=== PATIENT | female | born 1955 | race Two or more races ===

== ENCOUNTER 2025-01-28 10:09 | Emergency (ER) | payer OTHER ==
[2025-01-28 10:41] VITALS: BMI 29.8
[2025-01-28] MEDS ORDERED: morphine SULFATE 4 MG/ML VIAL ONE (11:34)
[2025-01-28 11:39] LABS: ABSOLUTE IMMATURE GRANULOCYTES 0.01 x10^3/uL (0.0-0.031); BASOPHILS # 0.03 x10^3/uL (0.01-0.08); EOSINOPHILS # 0.04 x10^3/uL (0.04-0.36); HEMATOCRIT 37.5 % (34.1-44.9); MCHC 34.7 g/dl (32.2-35.5); MEAN CELL VOLUME 93.5 fl (79.4-94.8); MEAN PLT VOLUME 9.9 fl (9.4-12.3); MONOCYTE # 0.51 x10^3/uL (0.24-0.86); MONOCYTE % 12.8 % (4.7-12.5); PLATELET COUNT 219 x10^3/uL (182-369)
[2025-01-28 11:47] LABS: INR 1.06 (0.83-1.09); PROTHROMBIN TIME (PATIENT) 11.6 SEC (9.7-13.0)
[2025-01-28] MEDS: morphine CARPU-JECT 4 MG/1 ML DISP.SYRIN IVPUSH ONE (11:49)
[2025-01-28 11:50] LABS: ACTIVATED PTT 26.4 SECONDS (25.2-36.5)
[2025-01-28 12:04] LABS: CALCIUM 9.6 mg/dL (8.5-10.1)
[2025-01-28 12:05] LABS: ALBUMIN 3.7 g/dl (3.4-5.0); BLOOD UREA NITROGEN 18.4 mg/dL (7-18)
[2025-01-28 12:08] LABS: CREATININE 0.7 mg/dL (0.55-1.3)
[2025-01-28 12:09] LABS: BILIRUBIN,TOTAL 0.6 mg/dL (0.2-1); TOT PROT 6.8 g/dl (6.4-8.2)
[2025-01-28 14:28] VITALS: BP 172/75; PULSE 55; RESP 18; TEMP 98
== END 2025-01-28 15:30 | disposition home or self-care (01) ==
LOC: JER 10:09
PROC: 3E033NZ Introduction of Analgesics, Hypnotics, Sedatives into Peripheral Vein, Percutaneous Approach (ICD-10-PCS; principal; 2025-01-28)
DX: R07.89 Other chest pain (principal); S80.211A Abrasion, right knee, initial encounter; W01.0XXA Fall on same level from slipping, tripping and stumbling without subsequent striking against object, initial encounter; Y92.410 Unspecified street and highway as the place of occurrence of the external cause
CPT/HCPCS: 36415; 71250-TC; 80053; 85025; 85610; 85730; 86850; 86900; 86901; 99285-25